=== PATIENT | female | born 1950 | race Hispanic/Latino ===

== ENCOUNTER → 2018-06-28 07:54 | Outpatient (CLI) | payer OTHER, SELFPAY ==
[2018-06-28 09:14] LABS: Alanine Aminotransferase 17 IU/L (9-52); Albumin Globulin Ratio 1.3 (1.0-2.8); Alkaline Phosphatase 53 U/L (38-126); Aspartate Aminotransferase 21 IU/L (14-36); BUN Creatinine Ratio 21.7 (6-22); Bilirubin Total 0.5 mg/dL (0.2-1.3); Blood Urea Nitrogen 13 mg/dL (7-17); Carbon Dioxide 24 mmol/L (22-32); Chloride 104 mmol/L (98-107); Cholesterol 223 mg/dL (140-199); Estimated Glomerular Filt Rate > 60.0 mL/min (>60); Globulin 3.2 g/dL (1.7-4.1); Glucose 110 mg/dL (80-110); HDL Cholesterol 33 mg/dL (40-60); HEMOLYSIS < 15 (0-50); LDL Cholesterol Calculated 150 mg/dL (<100); Potassium 4.2 mmol/L (3.4-5.1); Sodium 138 mmol/L (137-145); Total Protein 7.2 g/dL (6.3-8.2); Triglycerides 201 mg/dL (35-150)
[2018-06-28 09:18] LABS: Add Manual Diff / Slide Review NO; Basophils Absolute Auto 100 /uL (0-100); Basophils Percent Auto 1.1 % (0-2); Eosinophils Absolute Auto 200 /uL (0-450); Eosinophils Percent Auto 2.9 % (2-4); Hematocrit 41.1 % (36-46); Lymphocytes Absolute Auto 2100 /uL (1100-4500); Lymphocytes Percent Auto 29.8 % (25-40); Mean Corpuscular Hemoglobin 28.5 PG (26-34); Mean Corpuscular Volume 83.7 fL (80-100); Monocytes Absolute Auto 600 /uL (0-900); Monocytes Percent Auto 7.9 % (3-14); Neutrophils Absolute Auto 4100 /uL (1500-7000); Neutrophils Percent Auto 58.3 % (50-75); Platelet Count 258 X10^3/uL (150-400); Red Cell Distribution Width 13.5 % (11.6-14.8)
[2018-06-28 09:28] LABS: B Type Natriuretic Peptide < 100 (<100)
== END ==
PROVIDERS: PCP Family Medicine; Visit Provider Family Medicine
DX: E78.5 Hyperlipidemia, unspecified (principal); I10 Essential (primary) hypertension; R60.9 Edema, unspecified
CPT/HCPCS: 80053; 80061; 83880; 85025

== ENCOUNTER → 2018-08-24 07:15 | Outpatient (CLI) | payer OTHER, SELFPAY ==
--- NOTE | 2018-08-24 07:19 | DI.NM.S_ITS ---
PROCEDURE: [place] DILSHAD PERF SPECT REST & STR Rest and exercise myocardial perfusion SPECT with gated imaging and ejection fraction RADIOPHARMACEUTICAL: 20.2 mCi Tc-99m sestamibi IV at rest and 22.1 mCi Tc-99m sestamibi IV at peak exercise. A two day-protocol was performed. INDICATIONS: chest pain TECHNIQUE: Radiopharmaceutical was injected at peak stress test, and also at rest. SPECT images were obtained. SPECT myocardial perfusion images were displayed in short axis, horizontal long axis, and vertical long axis views. Gated images were reviewed using Yamsafer software. COMPARISON: [facility], [place], MYOCARDIAL PERFUSION, 09/29/2015, 14:53. CARDIAC STRESS: A standard Eitan treadmill exercise tolerance test was performed by the patient under the supervision of an attending staff. The patient exercised for 5 minutes and 10 seconds; functional aerobic impairment (HANY) is +10%. Hemodynamic data: There is normal blood pressure and heart rate response to exercise stress. Patient achieved 114% of maximum predicted heart rate at peak exercise. Symptoms: Patient denied chest pain during exercise. EKG: Sinus rhythm with frequent PVCs at rest and during recovery. Stress ECG tracings have significant artifact to assess for arrhythmias or ST changes. No diagnostic EKG changes of ischemia during recovery. FINDINGS: Raw data: There is good myocardial labeling by radiotracer. No significant motion artifacts. Otch-dn-rjwra ratio is 0.34 (normal is less than 0.38 for sestamibi tracer, and less than 0.50 for thallium tracer). Left ventricle function: Gated images demonstrate normal left ventricle wall thickening. No segmental wall motion abnormality. No transient ischemic dilation; TID is 0.81 (normal less than 1.3). The left ventricle resting end-diastolic volume is 68 mL. Left ventricle stress ejection fraction is 84%; normal values are above 45%. Myocardial perfusion: There is normal distribution of activity in the left and right ventricular myocardium. No fixed or reversible perfusion defects. IMPRESSION: low risk, normal treadmill nuclear stress test. 1) No perfusion evidence of ischemia or infarction. 2) Normal left ventricular size, wall motion, and systolic function (EF post stress 84%). 3) No ECG evidence of ischemia. Frequent PVCs at rest and during recovery (unable to comment during exercise due to artifacts). 4) No angina during the study. 5) Mildly reduced exercise tolerance (7.0 METs, HANY +10%). Target heart rate achieved. Appropriate blood pressure response to exercise (rest BP 140/90, max BP 162/88). 6) Compared to the nuclear stress test done 09/29/2015, no significant change with the perfusion images and BP control has improved on this study. Dictated by: Ronny Nelson MD on 08/25/2018 at 13:04 Approved by: Ronny Nelson MD on 08/25/2018 at 13:09
--- NOTE | 2018-08-24 08:48 | PM.TREADMILL ---
Cardiac Stress Test Report Referral & Results Date Patient Seen: 08/24/18 Time Patient Seen: 08:30 Requesting provider: Vane Pinzon Indication: HTN Rest ECG: Sinus rhythm with occ PAC Procedure Note: Today following both written and verbal informed consent the patient was exercised according to a standard Eitan protocol patient went for a total of 5 minutes 10 seconds achieving a maximum heart rate of 174 maximum systolic blood pressure of 162. This is approximately 7 METS. Exercise was terminated at this point because of dyspnea. Blood pressure and heart rate targets were met. Patient was also given Cardiolite through a previously started Hep-Lock IV by the nuclear fuel processing technician approximately 1 minute prior to the cessation of exercise. Significant EKG artifact during the walking portion made EKG interpretation very difficult. However, there were no ST deviations noted in the early rest period. Frequent PACs/PVCs observed during early rest. Impression: Intermediate probability for ischemia, though the EKG portion was suboptimal. Will await perfusion imaging. Please note: Actual ECG tracings can be found in the PACS system.
--- NOTE | 2018-08-24 08:52 | P.PCN_ITS ---
Cardiac Stress Test Report Referral & Results Date Patient Seen: 08/24/18 Time Patient Seen: 08:30 Requesting provider: Vane Pinzon Indication: HTN Rest ECG: Sinus rhythm with occ PAC Procedure Note: Today following both written and verbal informed consent the patient was exercised according to a standard Eitan protocol patient went for a total of 5 minutes 10 seconds achieving a maximum heart rate of 174 maximum systolic blood pressure of 162. This is approximately 7 METS. Exercise was terminated at this point because of dyspnea. Blood pressure and heart rate targets were met. Patient was also given Cardiolite through a previously started Hep-Lock IV by the nuclear control room operator approximately 1 minute prior to the cessation of exercise. Significant EKG artifact during the walking portion made EKG interpretation very difficult. However, there were no ST deviations noted in the early rest period. Frequent PACs/PVCs observed during early rest. Impression: Intermediate probability for ischemia, though the EKG portion was suboptimal. Will await perfusion imaging. Please note: Actual ECG tracings can be found in the PACS system.
== END ==
PROVIDERS: PCP Family Medicine; Referring Provider Internal Medicine Cardiovascular Disease; Visit Provider Family Medicine
DX: R07.9 Chest pain, unspecified (principal); I49.3 Ventricular premature depolarization; I10 Essential (primary) hypertension
CPT/HCPCS: 78452; 93016; 93017; 93018; A9502

== ENCOUNTER → 2018-09-01 12:53 | Outpatient (CLI) | payer OTHER, SELFPAY | PROVIDERS: PCP Family Medicine; Visit Provider Family Medicine | DX: M85.88 Other specified disorders of bone density and structure, other site (principal); Z78.0 Asymptomatic menopausal state; Z87.891 Personal history of nicotine dependence | CPT/HCPCS: 77080 ==

== ENCOUNTER → 2019-10-11 08:48 | Outpatient (CLI) | payer OTHER, SELFPAY ==
[2019-10-11 10:28] LABS: Add Manual Diff / Slide Review NO; Basophils Absolute Auto 100 /uL (0-100); Basophils Percent Auto 0.9 % (0-2); Eosinophils Absolute Auto 200 /uL (0-450); Eosinophils Percent Auto 2.3 % (2-4); Hematocrit 39.7 % (36-46); Hemoglobin 13.4 g/dL (12.0-16.0); Lymphocytes Absolute Auto 2000 /uL (1100-4500); Lymphocytes Percent Auto 30.1 % (25-40); Mean Corpuscular HGB Conc 33.8 % (30-36); Mean Corpuscular Hemoglobin 27.8 PG (26-34); Mean Corpuscular Volume 82.4 fL (80-100); Monocytes Absolute Auto 600 /uL (0-900); Monocytes Percent Auto 9.9 % (3-14); Neutrophils Absolute Auto 3700 /uL (1500-7000); Neutrophils Percent Auto 56.8 % (50-75); Platelet Count 241 X10^3/uL (150-400); Red Blood Cell Count 4.82 X10^6/uL (4.0-5.2); Red Cell Distribution Width 14.1 % (11.6-14.8); White Blood Cell Count 6.6 X10^3/uL (4.5-11.0)
[2019-10-11 10:53] LABS: Alanine Aminotransferase 21 IU/L (<35); Albumin Globulin Ratio 1.3 (1.0-2.8); Alkaline Phosphatase 55 U/L (38-126); Aspartate Aminotransferase 21 IU/L (14-36); BUN Creatinine Ratio 17.2 (6-22); Bilirubin Total 0.6 mg/dL (0.2-1.3); Blood Urea Nitrogen 10 mg/dL (7-17); Calcium 9.3 mg/dL (8.4-10.2); Carbon Dioxide 26 mmol/L (22-32); Chloride 100 mmol/L (98-107); Cholesterol 156 mg/dL (140-199); Estimated Glomerular Filt Rate > 60.0 mL/min (>60); Glucose 126 mg/dL (80-110); HDL Cholesterol 29 mg/dL (40-60); HEMOLYSIS < 15 (0-50); LDL Cholesterol Calculated 92 mg/dL (<100); Potassium 4.3 mmol/L (3.4-5.1); Sodium 136 mmol/L (137-145); Triglycerides 173 mg/dL (35-150)
[2019-10-11 11:21] LABS: TSH w/ Reflex to FT4 3.08 uIU/mL (0.47-4.68)
[2019-10-11 11:24] LABS: Hemoglobin A1C% w Est Avg Glu 6.6 % (4.0-6.0)
== END ==
PROVIDERS: PCP Family Medicine; Referring Provider Family Medicine; Visit Provider Family Medicine
DX: R53.83 Other fatigue (principal); E78.5 Hyperlipidemia, unspecified; I10 Essential (primary) hypertension; R73.9 Hyperglycemia, unspecified
CPT/HCPCS: 36415; 80053; 80061; 83036; 84443; 85025

== ENCOUNTER → 2019-10-23 16:39 | Outpatient (CLI) | payer OTHER, SELFPAY ==
[2019-10-23 20:13] LABS: Creatinine Urine Random 80.7 mg/dL
[2019-10-23 20:18] LABS: Microalbumi Creatinin Ratio Ur 19.8 ug/mg CR (<30); Microalbumin Urine Random 1.6 mg/dL (0-1.6)
== END ==
PROVIDERS: PCP Family Medicine; Visit Provider Family Medicine
DX: E11.9 Type 2 diabetes mellitus without complications (principal)
CPT/HCPCS: 82043; 82570

== ENCOUNTER → 2019-10-27 15:45 | Outpatient (CLI) | payer OTHER, SELFPAY ==
--- NOTE | 2019-10-27 15:52 | DI.MG.S_ITS ---
Patient Name: JUDY SIERRA date: 1950 Sex: F Attending Physician: Alberta Indications: Date: 10/27/2019 15:50 At the request of: ADALBERTO GRADY Procedure: MM screening mammo BI BILATERAL DIGITAL SCREENING MAMMOGRAM 3D/2D WITH CAD: 10/27/2019 CLINICAL: Routine screening. Comparison is made to exams dated: 09/09/2015 mammogram, 04/06/2011 mammogram, and 03/03/2010 mammogram - [facility]. There are scattered fibroglandular elements in both breasts. Current study was also evaluated with a Computer Aided Detection (CAD) system. No significant masses, calcifications, or other findings are seen in either breast. There has been no significant interval change. IMPRESSION: NEGATIVE There is no mammographic evidence of malignancy. A 1 year screening mammogram is recommended. This exam was interpreted at Station ID: [id number]. NOTE: For mammograms, a report in lay terms will be sent to the patient. Approximately 15% of breast malignancies will not be visualized mammographically. In the management of a palpable breast mass, a negative mammogram must not discourage biopsy of a clinically suspicious lesion. Electronically Signed By: Roger isbell/shell:10/29/2019 09:28:26 letter sent: Normal Exam ACR BI-RADS Category 1: Negative [id number]
== END ==
PROVIDERS: PCP Family Medicine; Referring Provider Family Medicine; Visit Provider Family Medicine
DX: Z12.31 Encounter for screening mammogram for malignant neoplasm of breast (principal)
CPT/HCPCS: 77063; 77067

== ENCOUNTER 2020-05-11 10:26 | Emergency (ER) | payer OTHER, SELFPAY ==
[2020-05-11] VITALS (10 sets, daily range): BP systolic 156–166; BP diastolic 70–74; PULSE 51–60; RESP 10–20; TEMP 36.8; O2SAT 96–100; BMI 35.9
--- NOTE | 2020-05-11 10:37 | DI.RAD.S_ITS ---
PROCEDURE: XR CHEST 1V INDICATIONS: chest pain TECHNIQUE: One view of the chest was acquired. COMPARISON: None. FINDINGS: Surgical changes and devices: None. Lungs and pleura: Patchy bilateral atelectasis. No pleural effusions or pneumothorax. Mediastinum: Mediastinal contours appear normal. Heart size is normal. Bones and chest wall: No suspicious bony lesions. Overlying soft tissues appear unremarkable. IMPRESSION: Patchy bilateral atelectasis. Dictated by: Ramesh Martinez M.D. on 05/11/2020 at 9:55 Approved by: Ramesh Martinez M.D. on 05/11/2020 at 9:55
[2020-05-11 11:14] LABS: INR 1.1 (0.9-1.3); Prothrombin Time 12.2 SECONDS (10.1-12.7)
[2020-05-11 11:16] LABS: PTT Partial Thromboplastin Tim 30 SECONDS (26.4-36.2)
[2020-05-11 11:19] LABS: Alanine Aminotransferase 16 IU/L (<35); Albumin 4.1 g/dL (3.5-5.0); Albumin Globulin Ratio 1.4 (1.0-2.8); Alkaline Phosphatase 63 U/L (38-126); Aspartate Aminotransferase 27 IU/L (14-36); BUN Creatinine Ratio 19.2 (6-22); Bilirubin Total 0.5 mg/dL (0.2-1.3); Blood Urea Nitrogen 10 mg/dL (7-17); Calcium 9.4 mg/dL (8.4-10.2); Carbon Dioxide 27 mmol/L (22-32); Chloride 101 mmol/L (98-107); Creatine Kinase 27 U/L (30-135); Estimated Glomerular Filt Rate > 60.0 mL/min (>60); Glucose 114 mg/dL (80-110); HEMOLYSIS < 15 (0-50); Lipase 47 U/L (23-300); Potassium 3.7 mmol/L (3.4-5.1); Sodium 134 mmol/L (137-145); Total Protein 7.1 g/dL (6.3-8.2)
[2020-05-11 11:20] LABS: Add Manual Diff / Slide Review NO; Basophils Absolute Auto 100 /uL (0-100); Basophils Percent Auto 1.1 % (0-2); Eosinophils Absolute Auto 100 /uL (0-450); Hematocrit 38.5 % (36-46); Lymphocytes Absolute Auto 1800 /uL (1100-4500); Lymphocytes Percent Auto 25.3 % (25-40); Mean Corpuscular HGB Conc 33.9 % (30-36); Mean Corpuscular Volume 82.7 fL (80-100); Monocytes Absolute Auto 600 /uL (0-900); Monocytes Percent Auto 7.7 % (3-14); Neutrophils Absolute Auto 4600 /uL (1500-7000); Neutrophils Percent Auto 63.9 % (50-75); Platelet Count 232 X10^3/uL (150-400); Red Blood Cell Count 4.66 X10^6/uL (4.0-5.2); Red Cell Distribution Width 14.2 % (11.6-14.8); White Blood Cell Count 7.2 X10^3/uL (4.5-11.0)
[2020-05-11 11:30] LABS: Troponin I < 0.012 ng/mL (0.01-0.034)
--- NOTE | 2020-05-11 12:27 | ED.CHESTPAIN ---
HPI - Chest Pain General Chief Complaint: Chest Pain Stated Complaint: heart problems/ dizzyness Time Seen by Provider: 05/11/20 10:51 Source: family Mode of arrival: Family Vehicle Limitations: language barrier (daughter translating, patient and daughter defer manager data warehousing.) History of Present Illness HPI narrative: This is a 69-year-old female who comes emergency department with complaint of double vision that began 2 weeks ago. Symtpoms began initially with headache, double vision and was not able to get out of bed or move around the house for a day or 2 secondary to vision changes. Any sort of movement made it worse. She did have full strength and movement in her extremities with no difficulty with speech or sensation changes. It has been slowly improving but is still present particularly with movement. It was most notable recently while driving and noticed that there were 2 images vertically staffed when she does notice it. She at this time he notices it more in her peripheral vision less than her central. It does seem to the binocular she does not appreciated when she covers her left or right eye. Patient has had some nausea but is not having any vomiting. She denies any numbness, weakness or tingling in her extremities. She is denying any vertigo or room spinning sensation. No chest pain or shortness of breath at this time although she was having symptoms earlier. No issues with bowel movements, no issues with urination. No rashes or skin changes. She had run out of her Coreg while in [place], and they returned to refill her medication. Apparently it is very difficult medication to find in [place]. She was taking her other hypertensive medication, her cholesterol medication and her daily aspirin. She does have known cataracts, she follows with Maria E gaona for her drafting technician. She has never had similar bit symptoms in the past. She has never had any intervention or surgery on her eyes. She has never had any prior strokes or heart attacks, she does have a history of hypertension, borderline diabetes and dyslipidemia. Her only prior surgical history is of pain in her ankle. No tobacco, alcohol or illicit. She is accompanied by her daughter today who has been assisting her with translation and they deferred a manager data warehousing. Related Data Home Medications Medication Instructions Recorded Confirmed ASPIRIN (#ASPIR 81) 81 mg PO Q DAY #0 03/18/11 10/23/19 Previous Rx's Medication Instructions Recorded carvedilol 12.5 mg tablet 12.5 mg PO BID #180 tab 10/12/19 hydrochlorothiazide 25 mg tablet 25 mg PO DAILY #90 tab 10/12/19 atorvastatin 20 mg tablet 20 mg PO BEDTIME #90 tab 10/23/19 captopril 25 mg tablet 25 mg PO BID #60 tab 05/05/20 Allergies Allergy/AdvReac Type Severity Reaction Status Date / Time LISINOPRIL Allergy Mild FATIGUE Uncoded 05/11/20 10:46 Review of Systems Review of Systems ROS Unobtainable: All systems reviewed & are unremarkable except as noted in HPI and below Patient History Medical History Cataracts, bilateral (~2006) Hyperlipidemia Hypertension Obesity (BMI 30-39.9) Type 2 diabetes mellitus Surgical History Status post delivery (~05/1988) Status post delivery (~12/1974) Family History Brother Age: 69 Hypertension Mother Age: 93 Alzheimer's disease Father Lung disease Social History marital status: number of children: 6 household members: family lives independently: Yes occupational status: other Smoking Status: Never smoker alcohol intake: never substance use type: does not use Smoking Status: Never smoker alcohol intake frequency: 0-2 drinks per day Substance Use Type: does not use Exam Narrative Exam Narrative: GEN: well nourished, well appearing elderly female, alert and oriented x 3, patient appears to be in mild distress. HEENT: Atraumatic, pupils are equal round reactive to light, nares are clear. General: no globe trauma Eyelids: normal inspection Conjunctiva/Sclera: normal inspection Corneas: normal inspection EOM: intact, no palsy/entrapment, no nystagmus, extraocular movements appear intact although patient right eye returned to central when looking to right upper quicker than other quadrants unclear if this was due to preference or true change. Pupils: PERRLA, normal accomadation, pupil normal Anterior Chambers: normal inspection, no hypema Posterior: normal fundoscopic on bilaterally HEART: Regular rate and rhythm without murmur, clicks, rubs. LUNGS:Lungs clear to auscultation, no wheezes, rales, crackles, chest moves symmetrically ABD:bowel sounds normal, soft, non-tender, no guarding, rebound, rigidity, no masses noted, no hepatosplenomegaly MSCL: Non-tender, full range of motion NEURO:CN 2-12 intact, sensation normal SKIN: No rash, erythema or other skin changes. Initial Vital Signs Initial Vital Signs: Vital Signs Respiratory Rate 15 05/11/20 10:36 Blood Pressure 166/74 H 05/11/20 10:36 Pulse Oximetry 99 05/11/20 10:36 Course Orders Ordered: ED Orders 05/11/20 10:37 XR chest 1V Stat EKG-12 Lead Stat 05/11/20 10:55 Complete Blood Count AUTO DIFF Stat Comprehensive Metabolic Panel Stat Lipase Stat Partial Thromboplastin Time Stat Prothrombin Time INR Stat Troponin & CK Cardiac Panel Stat 05/11/20 12:55 CT head/brain wo con Stat Vital Signs Vital signs: Vital Signs - 8 hr 05/11/20 10:36 05/11/20 10:43 05/11/20 11:00 Temperature 98.3 F Pulse Rate 56 L 57 L Respiratory Rate 15 20 13 Blood Pressure 166/74 H 166/74 H Pulse Oximetry 99 100 98 05/11/20 11:30 05/11/20 12:00 05/11/20 12:30 Temperature Pulse Rate 57 L 57 L 51 L Respiratory Rate 14 20 10 L Blood Pressure Pulse Oximetry 97 97 96 05/11/20 13:00 05/11/20 13:30 05/11/20 14:00 Temperature Pulse Rate 53 L 60 Respiratory Rate 16 18 20 Blood Pressure 166/74 H Pulse Oximetry 97 98 97 05/11/20 14:23 Temperature Pulse Rate 58 L Respiratory Rate 18 Blood Pressure 156/70 H Pulse Oximetry 97 MDM - Chest Pain Lab Data Attestation: I reviewed the patient's lab results. Result diagrams: 05/11/20 10:55 05/11/20 10:55 Labs: Lab Results 05/11/20 05/11/20 05/11/20 Range/Units 10:55 10:55 10:55 WBC 7.2 (4.5-11.0) X10^3/uL RBC 4.66 (4.0-5.2) X10^6/uL Hgb 13.0 (12.0-16.0) g/dL Hct 38.5 (36-46) % MCV 82.7 (80-100) fL MCH 28.0 (26-34) PG MCHC 33.9 (30-36) % RDW 14.2 (11.6-14.8) % Plt Count 232 (150-400) X10^3/uL Neut % (Auto) 63.9 (50-75) % Lymph % (Auto) 25.3 (25-40) % [place] % (Auto) 7.7 (3-14) % Eos % (Auto) 2.0 (2-4) % Baso % (Auto) 1.1 (0-2) % Neut # (Auto) 4600 (9030-0163) /uL Lymph # (Auto) 1800 (9023-7757) /uL [place] # (Auto) 600 (0-900) /uL Eos # (Auto) 100 (0-450) /uL Baso # (Auto) 100 (0-100) /uL PT 12.2 (10.1-12.7) SECONDS INR 1.1 (0.9-1.3) APTT 30 (26.4-36.2) SECONDS Sodium 134 L (137-145) mmol/L Potassium 3.7 (3.4-5.1) mmol/L Chloride 101 (98-107) mmol/L Carbon Dioxide 27 (22-32) mmol/L BUN 10 (7-17) mg/dL Creatinine 0.52 (0.52-1.04) mg/dL Estimated GFR > 60.0 (>60) mL/min BUN/Creatinine Ratio 19.2 (6-22) Glucose 114 H (80-110) mg/dL Calcium 9.4 (8.4-10.2) mg/dL Total Bilirubin 0.5 (0.2-1.3) mg/dL AST 27 (14-36) IU/L ALT 16 (<35) IU/L Alkaline Phosphatase 63 (38-126) U/L Total Creatine Kinase 27 L (30-135) U/L CK-MB (CK-2) TNP CK-MB (CK-2) Rel Index TNP Troponin I < 0.012 (0.01-0.034) ng/mL Total Protein 7.1 (6.3-8.2) g/dL Albumin 4.1 (3.5-5.0) g/dL Globulin 3.0 (1.7-4.1) g/dL Albumin/Globulin Ratio 1.4 (1.0-2.8) Lipase 47 (23-300) U/L Imaging Data Chest x-ray: Radiologist's Impression: [address] [id number] ReportSigned Patient: Dahiana FuentesR#: [id number]: 1950cct:[id number]/Sex: 69 / FDate of Service: 05/11/20Loc: EDAccession Number: [id number] Procedure: XR chest 1V Ordering Provider: Nerissa Easley D.O. PROCEDURE: XR CHEST 1V INDICATIONS: chest pain TECHNIQUE: One view of the chest was acquired. COMPARISON: None. FINDINGS: Surgical changes and devices: None. Lungs and pleura: Patchy bilateral atelectasis. No pleural effusions or pneumothorax. Mediastinum: Mediastinal contours appear normal. Heart size is normal. Bones and chest wall: No suspicious bony lesions. Overlying soft tissues appear unremarkable. IMPRESSION: Patchy bilateral atelectasis. Dictated by: Ramesh Martinez M.D. on 05/11/2020 at 9:55 Approved by: Ramesh Martinez M.D. on 05/11/2020 at 9:55 CT scan - head: Radiologist's Impression: [address] [id number] Scan ReportSigned Patient: Dahiana FuentesR#: [id number]: 1950cct:[id number]/Sex: 69 / FDate of Service: 05/11/20Loc: EDAccession Number: [id number] Procedure: CT head/brain wo con Ordering Provider: Nerissa Easley D.O. PROCEDURE: CT HEAD/BRAIN WO CON INDICATIONS: diploplia binocular for several weeks, iyer, sob, cp TECHNIQUE: Noncontrast 4.5 mm thick angled axial sections acquired from the foramen magnum to the vertex, with coronal and sagittal reformats. For radiation dose reduction, the following was used: automated exposure control, adjustment of mA and/or kV according to patient size. COMPARISON: None. FINDINGS: Image quality: Excellent. CSF spaces: Basal cisterns are patent. No extra-axial fluid collections. The ventricles are symmetric in size and shape. Brain: No intracranial bleeds or masses. There is cerebral volume loss for age, with resultant ventricular and sulcal prominence. There are periventricular and deep white matter chronic small vessel ischemic changes. There is intracranial internal carotid artery atherosclerosis. Skull and face: Calvarium and visualized facial bones appear intact, without suspicious lesions. Sinuses: Visualized sinuses and mastoids are clear. IMPRESSION: Unremarkable head CT for patient age. No evidence of acute stroke, hemorrhage, or mass. Dictated by: Ramesh Martinez M.D. on 05/11/2020 at 12:31 Approved by: Ramesh Martinez M.D. on 05/11/2020 at 12:32 ECG Data Attestation: I personally reviewed and interpreted this ECG as follows: Prior ECG tracings: not available for review Interpretation: Sinus bradycardia rate 55 MS interval 152 QRS 86 and QTC of 390. Patient has Q-wave in 3 and AVF. No elevation appreciated, no ST depression appreciated. No prior EKGs available for comparison. MDM Narrative Medical decision making narrative: 69-year-old female comes emergency department with 2 weeks of double vision, she has also had some chest pain and shortness of breath as well as dizziness. From evaluation and HPI patient appears to have binocular diplopia which is likely an issue with alignment of the eyes for a palsy, patient does not have any other stroke-like symptoms. Head CT was ordered to evaluate for any other acute changes. Patient's labs do not show any major abnormalities with no acute EKG changes and negative troponin and she had had some chest pain and shortness of breath. Patient was off her Coreg as it was unavailable while she was in [place] she just restarted yesterday. She was quite hypertensive while she was there. She is hypertensive in the department initially and would have patient continue her medication, she just had her 1st dose yesterday. Patient was asked to follow up with Ophthalmology for further evaluation. She has been asked to return if she has any other new neurologic changes, chest pain shortness of breath or any other concerning issues. Discharge Plan Departure Patient Disposition: Home Clinical Impression: Binocular vision disorder with diplopia Instructions: DI for Double Vision Activity Restrictions/Additional Instructions: Follow up with Dr. Gaona your drafting technician, call tomorrow morning for an appointment early this week. I suspect your vision changes are likely more related to alignment or issue with the is themselves. Please continue home medications as prescribed. Return to the ER for severe headaches, passing out, new vision changes or loss of vision, new or worsening chest pain or shortness of breath persistent vomiting black or bloody stools, new numbness, weakness or tingling of the extremities, difficulty with speech or other new or concerning symptoms. Prescriptions: No Action atorvastatin 20 mg tablet 20 mg PO BEDTIME Qty: 90 RF: 3 ASPIRIN (#ASPIR 81) 81 mg PO Q DAY Qty: 0 RF: 0 carvedilol 12.5 mg tablet 12.5 mg PO BID Qty: 180 RF: 3 hydrochlorothiazide 25 mg tablet 25 mg PO DAILY Qty: 90 RF: 3 captopril 25 mg tablet 25 mg PO BID Qty: 60 RF: 1 Referrals: Vane Pinzon DO [Primary Care Provider] -
--- NOTE | 2020-05-11 12:55 | DI.CT.S_ITS ---
PROCEDURE: CT HEAD/BRAIN WO CON INDICATIONS: diploplia binocular for several weeks, iyer, sob, cp TECHNIQUE: Noncontrast 4.5 mm thick angled axial sections acquired from the foramen magnum to the vertex, with coronal and sagittal reformats. For radiation dose reduction, the following was used: automated exposure control, adjustment of mA and/or kV according to patient size. COMPARISON: None. FINDINGS: Image quality: Excellent. CSF spaces: Basal cisterns are patent. No extra-axial fluid collections. The ventricles are symmetric in size and shape. Brain: No intracranial bleeds or masses. There is cerebral volume loss for age, with resultant ventricular and sulcal prominence. There are periventricular and deep white matter chronic small vessel ischemic changes. There is intracranial internal carotid artery atherosclerosis. Skull and face: Calvarium and visualized facial bones appear intact, without suspicious lesions. Sinuses: Visualized sinuses and mastoids are clear. IMPRESSION: Unremarkable head CT for patient age. No evidence of acute stroke, hemorrhage, or mass. Dictated by: Ramesh Martinez M.D. on 05/11/2020 at 12:31 Approved by: Ramesh Martinez M.D. on 05/11/2020 at 12:32
== END 2020-05-11 14:24 | disposition home or self-care (01) ==
PROVIDERS: Emergency Provider Emergency Medicine; PCP Family Medicine
DX: H53.2 Diplopia (principal); R51.9 Headache, unspecified; R07.9 Chest pain, unspecified; R00.1 Bradycardia, unspecified
CPT/HCPCS: 36415; 70450; 71045; 80053; 82550; 83690; 84484; 85025; 85610; 85730; 93005; 99281; 99284

== ENCOUNTER → 2022-04-22 11:19 | Outpatient (CLI) | payer OTHER, SELFPAY ==
[2022-04-22 12:15] LABS: Microalbumi Creatinin Ratio Ur 11.7 ug/mg CR (<30); Microalbumin Urine Random 1.2 mg/dL (0-1.6)
[2022-04-22 12:24] LABS: Add Manual Diff / Slide Review NO; Basophils Absolute Auto 100 /uL (0-100); Eosinophils Absolute Auto 200 /uL (0-450); Eosinophils Percent Auto 2.9 % (2-4); Hematocrit 40.6 % (36-46); Hemoglobin 13.6 g/dL (12.0-16.0); Lymphocytes Absolute Auto 1500 /uL (1100-4500); Lymphocytes Percent Auto 26.4 % (25-40); Mean Corpuscular HGB Conc 33.5 % (30-36); Mean Corpuscular Hemoglobin 27.7 PG (26-34); Mean Corpuscular Volume 82.7 fL (80-100); Monocytes Absolute Auto 400 /uL (0-900); Monocytes Percent Auto 7.5 % (3-14); Neutrophils Absolute Auto 3600 /uL (1500-7000); Neutrophils Percent Auto 62.2 % (50-75); Platelet Count 277 X10^3/uL (150-400); Red Blood Cell Count 4.91 X10^6/uL (4.0-5.2); White Blood Cell Count 5.8 X10^3/uL (4.5-11.0)
[2022-04-22 12:32] LABS: Hemoglobin A1C% w Est Avg Glu 6.3 % (4.0-6.0)
[2022-04-22 12:49] LABS: Alanine Aminotransferase 18 IU/L (<35); Albumin 4.1 g/dL (3.5-5.0); Albumin Globulin Ratio 1.2 (1.0-2.8); Alkaline Phosphatase 51 U/L (38-126); Aspartate Aminotransferase 22 IU/L (14-36); BUN Creatinine Ratio 14.3 (6-22); Bilirubin Total 0.5 mg/dL (0.2-1.3); Blood Urea Nitrogen 8 mg/dL (7-17); Calcium 8.9 mg/dL (8.4-10.2); Carbon Dioxide 25 mmol/L (22-32); Chloride 100 mmol/L (98-107); Cholesterol 225 mg/dL (140-199); Estimated Glomerular Filt Rate > 60 mL/min (>60); Globulin 3.4 g/dL (1.7-4.1); Glucose 125 mg/dL (80-110); HDL Cholesterol 29 mg/dL (40-60); HEMOLYSIS < 15 (0-50); LDL Cholesterol Calculated 158 mg/dL (<100); Potassium 3.5 mmol/L (3.4-5.1); Sodium 137 mmol/L (137-145); Total Protein 7.5 g/dL (6.3-8.2); Triglycerides 190 mg/dL (35-150)
[2022-04-22 13:23] LABS: TSH w/ Reflex to FT4 2.56 uIU/mL (0.47-4.68)
== END ==
PROVIDERS: PCP Family Medicine; Referring Provider Physician Assistant; Visit Provider Physician Assistant
DX: E11.9 Type 2 diabetes mellitus without complications (principal); E66.9 Obesity, unspecified; E78.2 Mixed hyperlipidemia; I10 Essential (primary) hypertension
CPT/HCPCS: 36415; 80053; 80061; 82043; 82570; 83036; 84443; 85025

== ENCOUNTER → 2022-12-22 16:32 | Outpatient (CLI) | payer OTHER, SELFPAY ==
[2022-12-22 18:40] LABS: Hemoglobin A1C% w Est Avg Glu 6.6 % (4.0-6.0)
[2022-12-22 18:53] LABS: BUN Creatinine Ratio 19.2 (6-22); Blood Urea Nitrogen 10 mg/dL (7-17); Calcium 9.2 mg/dL (8.4-10.2); Carbon Dioxide 24 mmol/L (22-32); Chloride 103 mmol/L (98-107); Estimated Glomerular Filt Rate > 60 mL/min (>60); Glucose 109 mg/dL (80-110); HEMOLYSIS 20 (0-50); Potassium 4.2 mmol/L (3.4-5.1); Sodium 135 mmol/L (137-145)
== END ==
PROVIDERS: PCP Family Medicine; Referring Provider Family Medicine; Visit Provider Family Medicine
DX: R73.03 Prediabetes (principal); I10 Essential (primary) hypertension
CPT/HCPCS: 36415; 80048; 83036

== ENCOUNTER → 2023-07-18 10:24 | Outpatient (CLI) | payer OTHER, SELFPAY ==
[2023-07-18 11:47] LABS: BUN Creatinine Ratio 18.9 (6-22); Blood Urea Nitrogen 10 mg/dL (7-17); Carbon Dioxide 25 mmol/L (22-32); Chloride 103 mmol/L (98-107); Estimated Glomerular Filt Rate > 60 mL/min (>60); Glucose 110 mg/dL (80-110); HEMOLYSIS < 15 (0-50); Potassium 4.5 mmol/L (3.4-5.1); Sodium 135 mmol/L (137-145)
[2023-07-18 12:20] LABS: Hep C Virus Ab w/Reflex Quant NEGATIVE s/c (NEGATIVE)
[2023-07-18 12:48] LABS: Hemoglobin A1C% w Est Avg Glu 5.9 % (4.0-6.0)
== END ==
PROVIDERS: PCP Family Medicine; Referring Provider Family Medicine; Visit Provider Family Medicine
DX: R73.03 Prediabetes (principal); I10 Essential (primary) hypertension; Z11.59 Encounter for screening for other viral diseases
CPT/HCPCS: 36415; 80048; 83036; 86803

== ENCOUNTER → 2023-11-14 15:34 | Outpatient (CLI) | payer OTHER, SELFPAY ==
[2023-11-14 17:41] LABS: Hemoglobin A1C% w Est Avg Glu 6.2 % (4.0-6.0)
[2023-11-14 17:44] LABS: Alanine Aminotransferase 16 IU/L (<35); Albumin Globulin Ratio 1.3 (1.0-2.8); Alkaline Phosphatase 54 U/L (38-126); Aspartate Aminotransferase 22 IU/L (14-36); BUN Creatinine Ratio 21.4 (6-22); Bilirubin Total 0.4 mg/dL (0.2-1.3); Blood Urea Nitrogen 12 mg/dL (7-17); Calcium 9.2 mg/dL (8.4-10.2); Carbon Dioxide 26 mmol/L (22-32); Chloride 97 mmol/L (98-107); Cholesterol 141 mg/dL (140-199); Estimated Glomerular Filt Rate > 60 mL/min (>60); Globulin 3.2 g/dL (1.7-4.1); Glucose 132 mg/dL (80-110); HDL Cholesterol 37 mg/dL (40-60); HEMOLYSIS 15 (0-50); LDL Cholesterol Calculated 75 mg/dL (<100); Potassium 3.7 mmol/L (3.4-5.1); Sodium 132 mmol/L (137-145); Total Protein 7.2 g/dL (6.3-8.2); Triglycerides 147 mg/dL (35-150)
== END ==
PROVIDERS: PCP Family Medicine; Referring Provider Family Medicine; Visit Provider Family Medicine
DX: R73.03 Prediabetes (principal); I10 Essential (primary) hypertension; E78.2 Mixed hyperlipidemia
CPT/HCPCS: 36415; 80053; 80061; 83036

== ENCOUNTER → 2023-12-05 11:38 | Outpatient (CLI) | payer OTHER, SELFPAY ==
[2023-12-07 19:07] LABS: Fecal Immunochemical Test Negative (Negative)
== END ==
PROVIDERS: PCP Family Medicine; Referring Provider Family Medicine; Visit Provider Family Medicine
DX: Z12.11 Encounter for screening for malignant neoplasm of colon (principal)
CPT/HCPCS: 82274

== ENCOUNTER → 2024-11-14 14:34 | Outpatient (CLI) | payer OTHER, SELFPAY ==
[2024-11-14 16:19] LABS: Alanine Aminotransferase 18 IU/L (<35); Albumin 4.1 g/dL (3.5-5.0); Albumin Globulin Ratio 1.4 (1.0-2.8); Alkaline Phosphatase 56 U/L (38-126); Blood Urea Nitrogen 10 mg/dL (7-17); Calcium 9.4 mg/dL (8.4-10.2); Carbon Dioxide 24 mmol/L (22-32); Chloride 99 mmol/L (98-107); Cholesterol 217 mg/dL (140-199); Estimated Glomerular Filt Rate > 60 mL/min (>60); Globulin 2.9 g/dL (1.7-4.1); Glucose 95 mg/dL (70-99); HDL Cholesterol 37 mg/dL (40-60); HEMOLYSIS < 15 (0-50); Hemoglobin A1C% w Est Avg Glu 6.6 % (4.0-6.0); Potassium 4.3 mmol/L (3.4-5.1); Sodium 133 mmol/L (137-145); Total Protein 7.0 g/dL (6.3-8.2); Triglycerides 207 mg/dL (35-150)
== END ==
PROVIDERS: PCP Family Medicine; Referring Provider Family Medicine; Visit Provider Family Medicine
DX: R73.03 Prediabetes (principal); E78.2 Mixed hyperlipidemia; Z00.00 Encounter for general adult medical examination without abnormal findings; I10 Essential (primary) hypertension
CPT/HCPCS: 36415; 80053; 80061; 83036